=== PATIENT | male | born 1935 | race Caucasian/White ===

== ENCOUNTER 2020-07-10 08:34 | Inpatient (IN) | payer OTHER, SELFPAY ==
[~2020-07-10] VITALS: Ht 180.3 cm; Wt 90.7 kg
--- NOTE | 2020-07-10 08:34 | NUR ---
[facility]IT[facility] ON BED PLACEMENT.
--- NOTE | 2020-07-10 08:40 | NUR ---
PATIENT [facility]EE[facility] TO ER BED 08
--- NOTE | 2020-07-10 08:45 | NUR ---
85 YO M BIBA FOR C/C OF GENERALIZED WEAKNESS X2 MONTHS AND GENERALLY NOT FEELING WELL. PT DENIES FEVER, SOB, N/V/D, HAS AN ACTIVE NONPRODUCTIVE COUGH, DENIES CONTACT WITH COVID + PTS. PT CONNECTED TO GRIDDLE COOK/PULSE OX. BED LOCKED AND IN LOWEST POSITION. SIDE RAILS X2. MED HX: DENIES NKA
[2020-07-10 08:50] VITALS: BP 136/85
--- NOTE | 2020-07-10 08:50 | NUR ---
PATIENT MOVED TO ER BED 13
[2020-07-10] MEDS ORDERED: NACL 0.9% 1,000 ML IV ONE ×2 (08:55→11:55)
--- NOTE | 2020-07-10 09:48 | NUR ---
EKG AT BEDSIDE
[2020-07-10 09:50] LABS: BASOPHILS % (AUTO) 0.1 % (0.0-2.0); EOSINOPHILS % (AUTO) 0.1 % (0.0-4.0); HEMATOCRIT 41.1 % (36-52); HEMOGLOBIN 13.9 g/dL (12.0-18.0); LYMPHOCYTES # (AUTO) 0.8 K/uL (2.0-11.5); LYMPHOCYTES % (AUTO) 6.3 % (20.5-51.1); MEAN CORPUSCULAR HEMOGLOBIN 33 pg (27-31); MEAN CORPUSCULAR HGB CONC 34 g/dL (33-37); MEAN CORPUSCULAR VOLUME 98.5 fL (80-94); MONOCYTES # (AUTO) 0.9 K/uL (0.8-1.0); MONOCYTES % (AUTO) 6.8 % (1.7-9.3); NEUTROPHILS # (AUTO) 11.7 K/uL (1.8-7.7); NEUTROPHILS % (AUTO) 86.7 % (42.2-75.2); PLATELET COUNT (AUTO) 311 K/uL (140-450); RED BLOOD CELL COUNT(AUTO) 4.17 MIL/uL (4.20-6.10); RED CELL DISTRIBUTION WIDTH 13.4 % (11.6-13.7); WHITE BLOOD COUNT (AUTO) 13.5 K/uL (4.8-10.8)
--- NOTE | 2020-07-10 09:57 | NUR ---
PATIENT TAKEN TO CT
[2020-07-10 10:10] LABS: ALBUMIN 3.4 g/dL (3.4-5.0); ANION GAP 20.8 (8-16); ASPARTATE AMINOTRANSFERASE 55 U/L (15-37); CARBON DIOXIDE 21.2 mmol/L (21-32); CHLORIDE 96 mmol/L (98-107); CREATININE 0.7 mg/dL (0.6-1.3); GLUCOSE 106 mg/dL (74-106); SODIUM SERUM 134 mmol/L (136-145); TOTAL BILIRUBIN 0.7 mg/dL (0.0-1.0); UREA NITROGEN, BLOOD 17 mg/dL (7-18)
--- NOTE | 2020-07-10 10:22 | NUR ---
PT RETURNED FROM CT SCAN. BED LCOKED AND IN LOWEST POSITION. SIDE RAILS X2.
--- NOTE | 2020-07-10 10:32 | NUR ---
PRATIMAD MADE AWARE OF 03/01 ABDOMINAL PAIN
[2020-07-10] MEDS ORDERED: MORPHINE SULFATE 4 MG/ML SYR ONE (10:41)
[2020-07-10] MEDS ORDERED: ONDANSETRON 4 MG/2 ML VIAL ONE (10:41)
--- NOTE | 2020-07-10 10:51 | NUR ---
PT PLACED ON PULSE OX/POULTRY SCIENTIST BEFORE MORPHINE ADMIN
--- NOTE | 2020-07-10 11:00 | NUR ---
PT ADMITS TO TAKING MULTIPLE MEDICATION IN ATTEMPT TO OVERDOSE, NORCO, AND NAPROSYN AND AND UNKNOWN MED FOR BPH.
--- NOTE | 2020-07-10 11:00 | NUR ---
UNAWARE OF OVERDOSE PRIOR TO MORPHINE ADMINISTRATION
[2020-07-10] MEDS ORDERED: ONDANSETRON 4 MG/2 ML VIAL IVP ONE (11:05)
[2020-07-10] MEDS ORDERED: MORPHINE SULFATE 4 MG/ML SYR IVP ONE (11:05)
--- NOTE | 2020-07-10 11:37 | NUR ---
SPOKE WITH RAZA FROM POISON CONTROL. STATED TO MONITOR FOR BELT BUILDER AND RESPIRATORY DEPRESSION, ADMINISTER NARCAN IF SO. MONITOR PT FOR 4-6 HOURS AFTER NARCAN IF ADMINISTERED. STATES THAT ACETAMINOPHEN OVERDOSE IS UNLIKELY, HOWEVER IT IS RECOMMENDED TO GIVE STARTING DOSE OF N-ACETYLYCSTEINE FOR POTENTIAL ACETAMINOPHEN OVERDOSE. STARTING DOSE IS 150MG/KG/HR. RECHECK AST/ALT AFTER LOADING DOSE. RECHECK LABS FOR LACTIC ACID POST BOLUS
[2020-07-10] MEDS ORDERED: ACETYLCYSTEINE IV ONE (11:55)
[2020-07-10] MEDS ORDERED: DEXTROSE 5% IV ONE (11:55)
--- NOTE | 2020-07-10 12:19 | NUR ---
CALLED DR. ALESSIO PAREKH [phone] REVIEWED ABG SAMPLE REPORT NO NEW ORDERS
--- NOTE | 2020-07-10 12:30 | NUR ---
PT STATED ABD PAIN IS 10/10 AT THIS TIME ERMD MADE AWARE. BEDSIDE MONITOR IN PLACE MONITORING CARDIAC/O2 SAT. EQUAL CHEST RISE AND FALL.
[2020-07-10 12:35] LABS: APPEARANCE,URINE CLEAR (CLEAR); BILIRUBIN,URINE NEGATIVE (NEGATIVE); BLOOD, URINE NEGATIVE (NEGATIVE); COLOR,URINE YELLOW (YELLOW); LEUKOCYTE ESTERASE ,URINE NEGATIVE (NEGATIVE); NITRITE, URINE NEGATIVE (NEGATIVE); UGLUCOSE NEGATIVE (NEGATIVE)
--- NOTE | 2020-07-10 12:49 | NUR ---
CALLED PHARMACY TO MAKE ACETADOTE MED
[2020-07-10 12:58] LABS: ACETAMINOPHEN 5.2 ug/ml (10-30)
[2020-07-10 12:59] LABS: SALICYLATE < 2.8 mg/dL (2.8-20.0)
--- NOTE | 2020-07-10 13:09 | NUR ---
Lactic acid 6.1--critical value received from lab. Dr Guthrie made aware
[2020-07-10 13:18] LABS: BARBITURATE, URINE NEGATIVE ng/ml (NEG <=200); BENZODIAZEPINE, URINE NEGATIVE ng/mL (NEG <=200); CANNABINOID, URINE NEGATIVE ng/mL (NEG <=50); COCAINE, URINE NEGATIVE ng/mL (NEG <=300); OPIATE, URINE POSITIVE ng/mL (NEG <=2000); PHENCYCLIDINE SCREEN,URINE NEGATIVE ng/mL (NEG <=25)
--- NOTE | 2020-07-10 14:18 | NUR ---
GAVE UPDATE TO PTS DAUGHTER AFTER OBTAINING HIS CONSENT TO DO SO [phone] JOHN ARRIOLA (PTS DAUGHTER)
--- NOTE | 2020-07-10 15:22 | NUR ---
SPOKE WITH RAZA FROM POISON CONTROL, MADE HER AWARE THAT PHARMACY ADVISED AGAINST GIVING THE ACETYLCYSTEINE DUE TO 5.2 ACETAMINOPHEN LEVELS. MADE HER AWARE THAT THE LACTIC ACID IS TRENDING DOWN FROM 7.9 TO 6.1. SHE ADVISED TO GET A REPEAT CHEMISTRY PANEL AND IF AST IS TRENDING UPWARD TO GIVE THE ACETYLCYSTEINE ORDERED.
[2020-07-10 16:52] LABS: ALBUMIN 3.1 g/dL (3.4-5.0); ASPARTATE AMINOTRANSFERASE 45 U/L (15-37); CARBON DIOXIDE 20.2 mmol/L (21-32); CHLORIDE 100 mmol/L (98-107); CREATININE 0.7 mg/dL (0.6-1.3); GLUCOSE 139 mg/dL (74-106); POTASSIUM 4.2 mmol/L (3.5-5.1); SODIUM SERUM 136 mmol/L (136-145); TOTAL BILIRUBIN 1.1 mg/dL (0.0-1.0); UREA NITROGEN, BLOOD 14 mg/dL (7-18)
--- NOTE | 2020-07-10 17:00 | NUR ---
PT ASLEEP IN BED, EQUAL CHEST RISE AND FALL, PT APPEARS TO BE IN NO DISTRESS. BED LOCKED AND IN LOWEST POSITION. SIDE RAILS X2. BALLISTICS EXPERT FORENSIC/PULSE OX IN PLACE.
[2020-07-10] MEDS ORDERED: ONDANSETRON 4 MG/2 ML VIAL IVP PRN (17:15)
[2020-07-10] MEDS ORDERED: POTASSIUM CHLORIDE 10 MEQ TABER PO PRN (17:15)
[2020-07-10] MEDS ORDERED: MAGNESIUM OXIDE 400 MG TAB PO PRN (17:15)
--- NOTE | 2020-07-10 18:19 | NUR ---
Note steffen in EDM - 07/10/20 at 1822 by [facility] I SPOKE WITH RAZA FROM POISON CONTROL TO REPORT A DECREASE IS AST FROM 55 TO 45. SHE STATED NO NEED TO GIVE ACETYLCYSTEINE. POISON FAMILY NURSE STATES SHE DOESNT ANTICIPATE ANYMORE ADVERSE REACTIONS THIS FAR OUT AFTER OVERDOSE.
--- NOTE | 2020-07-10 18:22 | NUR ---
I SPOKE WITH RAZA FROM POISON CONTROL TO REPORT A DECREASE IS AST FROM 55 TO 45. SHE STATED NO NEED TO GIVE ACETYLCYSTEINE. POISON INTERNATIONAL TRADE ANALYST STATES SHE DOESNT ANTICIPATE ANYMORE ADVERSE REACTIONS THIS FAR OUT AFTER OVERDOSE.
[2020-07-10] MEDS: ALBUTEROL SULFATE/IPRATROPIU 3 ML SOL IH SCH (19:00)
--- NOTE | 2020-07-10 19:20 | NUR ---
REPORT GIVEN TO ZEB SAUCEDO. TRANSFER OF CARE AT THIS TIME.
--- NOTE | 2020-07-10 19:29 | NUR ---
Report received from ZEB Lyon for continuation of care.
[2020-07-10] MEDS: BUDESONIDE 0.5 MG/2 ML NEBU INH SCH (19:30)
--- NOTE | 2020-07-10 19:30 | NUR ---
per Kelton, RT - no breathing tx administered per Covid Protocols.
--- NOTE | 2020-07-10 20:00 | NUR ---
PT RESTING IN BED, LOCKED AND IN LOWEST POSITION, HOB ELEVATED, SIDE RAIL X 2 FOR PT SAFETY. NO ACUTE DISTRESS NOTED.
[2020-07-10] MEDS: NACL 0.9% 500 ML IV SCH (20:58)
--- NOTE | 2020-07-10 22:13 | NUR ---
PT PROVIDED W/ BEDPAN - ONE BROWN & SOFT BM NOTED.
--- NOTE | 2020-07-10 22:16 | NUR ---
PT PROVIDED W/ NEW SHEET AND REPOSITIONED FOR COMFORT.
--- NOTE | 2020-07-10 23:24 | NUR ---
PT HAD X 2 , BROWN & SOFT BOWEL MOVEMENT. NEW SHEET PLACED ON BED. PT REPOSITIONED FOR COMFORT. VSS. NO ACUTE DISTRESS NOTED.
--- NOTE | 2020-07-11 00:10 | NUR ---
Osvaldo bourne in ED - 07/12/20 at 0427 by [email or web address] PT SLEEPING, REMAINS ON BEDSIDE MONITOR, RESPIRATIONS REGULAR EVEN AND UNLABORED. WILL CONTINUE TO MONITOR
--- NOTE | 2020-07-11 00:17 | NUR ---
PT SLEEPING IN BED, LOCKED AND IN LOWEST POSITION, HOB ELEVATED, SIDE RAIL X2. VISIBLE RISE AND FALL OF CHEST, RR EVEN AND UNLABORED. AROUSABLE TO VERBAL STIMULATION. VSS. NO ACUTE DISTRESS NOTED.
[2020-07-11] MEDS: ALBUTEROL SULFATE/IPRATROPIU 3 ML SOL IH SCH ×4 (01:00→19:00)
--- NOTE | 2020-07-11 01:09 | NUR ---
per Kelton, RT - breathing tx not administered due to Covid Protocols.
[2020-07-11] MEDS: NACL 0.9% 500 ML IV SCH ×4 (03:07→23:03)
--- NOTE | 2020-07-11 03:09 | NUR ---
pt sleeping in bed, locked and in lowest position. Visible rise and fall of chest. VSS. SaO2 96%. No acute distress noted.
--- NOTE | 2020-07-11 05:00 | NUR ---
MRSA SWAB COLLECTED AND WALKED TO LAB.
--- NOTE | 2020-07-11 06:45 | NUR ---
PT HAD BROWN & SOFT BOWEL MOVEMENT AT THIS TIME.
--- NOTE | 2020-07-11 07:09 | NUR ---
PATIENT HAS BEEN SCREENED AND CATEGORIZED LOW NUTRITION RISK. PATIENT WILL BE SEEN WITHIN 7 DAYS OF ADMISSION. 07/19/20 RAQUEL MEZA MS, RDN
--- NOTE | 2020-07-11 07:20 | NUR ---
RECIEVED REPORT FROM ZEB SAUCEDO. TRANSFER OF CARE AT THIS TIME.
[2020-07-11] MEDS: BUDESONIDE 0.5 MG/2 ML NEBU INH SCH ×2 (07:30→19:30)
--- NOTE | 2020-07-11 08:00 | NUR ---
PT CHNAGED INTO NEW GOWN, BED LINENS CHNAGED. PT GIVEN BREAKFAST TRAY. BED LOCKED AND IN LOWEST POSITION. SIDE RAILS X1. CARDIAC MONIOR/PULSE OX IN PLACE.
[2020-07-11 09:14] LABS: BASOPHILS % (AUTO) 0.3 % (0.0-2.0); EOSINOPHILS % (AUTO) 0.1 % (0.0-4.0); HEMATOCRIT 36.2 % (36-52); HEMOGLOBIN 12.4 g/dL (12.0-18.0); LYMPHOCYTES # (AUTO) 0.4 K/uL (2.0-11.5); MEAN CORPUSCULAR HEMOGLOBIN 33 pg (27-31); MEAN CORPUSCULAR HGB CONC 34 g/dL (33-37); MEAN CORPUSCULAR VOLUME 97.7 fL (80-94); MONOCYTES % (AUTO) 8.5 % (1.7-9.3); NEUTROPHILS # (AUTO) 9.8 K/uL (1.8-7.7); PLATELET COUNT (AUTO) 279 K/uL (140-450); RED BLOOD CELL COUNT(AUTO) 3.71 MIL/uL (4.20-6.10); RED CELL DISTRIBUTION WIDTH 13.5 % (11.6-13.7); WHITE BLOOD COUNT (AUTO) 11.2 K/uL (4.8-10.8)
[2020-07-11 09:45] LABS: PROTHROMBIN TIME 39.2 secs (10.8-13.4)
[2020-07-11] MEDS: ENOXAPARIN 40 MG/0.4 ML SYR SUBQ SCH (09:49)
[2020-07-11 09:56] LABS: ANION GAP 13.8 (8-16); ASPARTATE AMINOTRANSFERASE 45 U/L (15-37); CARBON DIOXIDE 24.5 mmol/L (21-32); CHLORIDE 102 mmol/L (98-107); CREATININE 0.9 mg/dL (0.6-1.3); GLUCOSE 111 mg/dL (74-106); MAGNESIUM 1.9 mg/dL (1.8-2.4); PHOSPHORUS 2.1 mg/dL (2.5-4.9); POTASSIUM 4.3 mmol/L (3.5-5.1); SODIUM SERUM 136 mmol/L (136-145); TOTAL BILIRUBIN 1.2 mg/dL (0.0-1.0); UREA NITROGEN, BLOOD 20 mg/dL (7-18)
[2020-07-11 10:37] LABS: NEUTROPHILS % (AUTO) 87.1 % (42.2-75.2)
--- NOTE | 2020-07-11 11:00 | NUR ---
PT AMBULATED TO BEDSIDE COMMODE, ONE LIQUID STOOL. PLACED BACK IN BED LOCKED AND IN LOWEST POSITION. SIDE RAILS X2. CARDIAC MONIOR/PULSE OX IN PLACE.
[2020-07-11 11:01] LABS: D-DIMER 2170 ng/ml (0-400)
--- NOTE | 2020-07-11 12:18 | NUR ---
CONSULTED DR. WAGONER ABOUT PT, INR, PTT CRITICAL LEVELS. GAVE VERBAL ORDER TO REPEAT LACTIC ACID AND ACETAMINOPHEN LEVELS
--- NOTE | 2020-07-11 13:04 | NUR ---
PT PROVIDED WITH LUNCH TRAY
--- NOTE | 2020-07-11 14:00 | NUR ---
PT HAD BM OF DIARRHEA STOOL
--- NOTE | 2020-07-11 14:30 | NUR ---
LAB AT BEDSIDE
--- NOTE | 2020-07-11 15:00 | NUR ---
pt placed on 5150 hold by psychiatrist
--- NOTE | 2020-07-11 15:02 | NUR ---
PSYCHIATRIST AT BEDSIDE
--- NOTE | 2020-07-11 16:25 | NUR ---
pt states "leave me alone I want to ." camera monitoring pt with sitter near video monitor.
--- NOTE | 2020-07-11 19:05 | NUR ---
PT GIVEN DINNER TRAY. SITTING UP ON SIDE OF BED EATING. CARDIAC MONIOR/PULSE OX IN PLACE. ALL PT NEEDS MET AT THIS TIME. BED LOCKED AND IN LOWEST POSITION. SIDE RAILS X1.
--- NOTE | 2020-07-11 19:28 | NUR ---
REPORT GIVEN TO ZEB MATIAS. TRANSFER OF CARE AT THIS TIME.
--- NOTE | 2020-07-11 19:31 | NUR ---
RECEIVED REPORT FROM BEVERLEY CARRINGTON
--- NOTE | 2020-07-11 20:00 | NUR ---
TOOK DINNER TRAY FROM BEDSIDE PT ONLY ATE 10-15%. PT REMAINS ON BEDSIDE MONITOR. BED IN LOWEST POSITION AND SIDERAIL UP X 1
--- NOTE | 2020-07-12 | NUR ---
PT SLEEPING, PT REMAINS ON BEDSIDE MONITOR. RESPIRATIONS REGULAR EVEN AND UNLABORED. WILL CONTINUE TO MONITOR PT
--- NOTE | 2020-07-12 03:15 | NUR ---
PT SLEEPING, NO DISTRESS NOTED. REMAINS ON BEDISDE MONITOR, V/S WNL. WILL CONTIUE TO MONITOR.
--- NOTE | 2020-07-12 03:50 | NUR ---
PT'S LINENS AND GOWN CHANGED, PT URINATED IN BED. DIAPER PLACED ON PT. RESPOSTIONED FOR COMFORT.
[2020-07-12] MEDS: NACL 0.9% 500 ML IV SCH ×3 (05:42→17:46)
--- NOTE | 2020-07-12 07:19 | NUR ---
Pt report given to LINDA CARRINGTON. Transfer of care at this time.
--- NOTE | 2020-07-12 07:20 | NUR ---
Report received from ZEB Lawrence shift commander
[2020-07-12 08:10] LABS: BASOPHILS % (AUTO) 0.2 % (0.0-2.0); EOSINOPHILS % (AUTO) 0.5 % (0.0-4.0); HEMATOCRIT 36.7 % (36-52); HEMOGLOBIN 12.7 g/dL (12.0-18.0); LYMPHOCYTES # (AUTO) 0.7 K/uL (2.0-11.5); LYMPHOCYTES % (AUTO) 8.4 % (20.5-51.1); MEAN CORPUSCULAR HEMOGLOBIN 34 pg (27-31); MEAN CORPUSCULAR HGB CONC 35 g/dL (33-37); MEAN CORPUSCULAR VOLUME 96.8 fL (80-94); MONOCYTES # (AUTO) 0.7 K/uL (0.8-1.0); MONOCYTES % (AUTO) 8.2 % (1.7-9.3); NEUTROPHILS % (AUTO) 82.7 % (42.2-75.2); PLATELET COUNT (AUTO) 283 K/uL (140-450); RED BLOOD CELL COUNT(AUTO) 3.79 MIL/uL (4.20-6.10); RED CELL DISTRIBUTION WIDTH 13.5 % (11.6-13.7); WHITE BLOOD COUNT (AUTO) 8.5 K/uL (4.8-10.8)
--- NOTE | 2020-07-12 08:26 | NUR ---
Patient resting comfortably in bed, HOB elevated Patient in hospital gown, denies any suicidal ideations at this time, room 8 swept for safety Close observation Resp even and unlabored, room air sat 93-96% VVS, in NAD, IV # 20g right hand, patent, receiving NS @ 75 cc/hr Will continue to monitor
[2020-07-12 08:32] LABS: PROTHROMBIN TIME 10.4 secs (10.8-13.4)
--- NOTE | 2020-07-12 09:33 | NUR ---
Patient brought regular diet tray for breakfast Patient states he's not hungry, left tray Patient didn't eat meal
[2020-07-12] MEDS: ENOXAPARIN 40 MG/0.4 ML SYR SUBQ SCH (09:56)
[2020-07-12 11:12] LABS: ALBUMIN 2.9 g/dL (3.4-5.0); ANION GAP 14.3 (8-16); ASPARTATE AMINOTRANSFERASE 39 U/L (15-37); CARBON DIOXIDE 24.6 mmol/L (21-32); CHLORIDE 106 mmol/L (98-107); CREATININE 0.6 mg/dL (0.6-1.3); GLUCOSE 94 mg/dL (74-106); MAGNESIUM 2.2 mg/dL (1.8-2.4); PHOSPHORUS 2.4 mg/dL (2.5-4.9); POTASSIUM 3.9 mmol/L (3.5-5.1); SODIUM SERUM 141 mmol/L (136-145); TOTAL BILIRUBIN 0.8 mg/dL (0.0-1.0); UREA NITROGEN, BLOOD 8 mg/dL (7-18)
--- NOTE | 2020-07-12 12:35 | NUR ---
Patient brought regular diet tray for lunch Patient states he's not hungry, left tray Patient didn't eat meal
--- NOTE | 2020-07-12 13:36 | NUR ---
Patient with NS @ 75cc/hr via righr hand IV, 500cc bag exchanged. VVS, resp even and unlabored, HOB elevated Patient in hospital gown, room 8 swept for safety, close observation
--- NOTE | 2020-07-12 14:11 | NUR ---
SOCIAL WORK NOTE: RAEGAN CONTACTED ZEB ARGUELLO IN ER AND REQUESTED FOR 5150 TO BE FAXED TO [facility]. RAEGAN WILL FOLLOW UP. RAEGAN IS UNABLE TO MEET PATIENT DUE TO MEDICAL CONDITION TO COMPLETE ASSESSMENT. Addendum: 07/12/20 at 1625 by Jonel ANDREWS RAEGAN SPOKE WITH KATYA FROM [facility]. PER KATYA, PACKET WAS NOT RECEIVED. RAEGAN CONTACTED ZEB PEGUERO FROM ED WHO STATED SHE WOULD HAVE 5150 FAXED AGAIN. Addendum: 07/12/20 at 1641 by Jonel ANDREWS RAEGAN FAXED PACKET TO [facility] [phone] AND [phone]. RAEGAN WILL FOLLOW UP. Addendum: 07/12/20 at 1646 by Jonel ANDREWS RAEGAN CONTACTED [facility] AND SPOKE TO KATYA [phone]. PER KATYA [facility] RECEIVED CLINICALS AND WILL BEGIN LOOKING FOR PLACEMENT. Addendum: 07/13/20 at 1543 by Jonel ANDREWS RAEGAN WAS UNABLE TO COMPLETE ASSESSMENT WITH PATIENT. RAEGAN WILL FOLLOW UP. Addendum: 07/13/20 at 1544 by Jonel ANDREWS RAEGAN CONTACTED KATYA FROM [facility] [phone]. PER KATYA, NO PSYCHIATRIC FACILITIES ARE ACCEPTING PATIENTS WITH COVID. KATYA STATED HE WILL FOLLOW UP WITH RAEGAN.
--- NOTE | 2020-07-12 17:38 | NUR ---
Patient sleeping, HOB elevated, IV patent with 75cc/hr Patient on 5150 for DTS, in hospital gown, room swept for safety, close observation
--- NOTE | 2020-07-12 19:30 | NUR ---
RECEIVED REPORT FROM LINDA CARRINGTON FOR CONTINUITY OF CARE.
--- NOTE | 2020-07-12 19:40 | NUR ---
Detailed report given to ZEB Lowry for shift production supervisor. Questions answered. Orders and meds reviewed.
--- NOTE | 2020-07-12 20:35 | NUR ---
PT HAD X 1 , BROWN & SOFT BOWEL MOVEMENT. NEW SHEET PLACED ON BED SKIN WAS CLEANED AND LEFT DRY/INTACT. PT REPOSITIONED FOR COMFORT. VSS. NO ACUTE DISTRESS NOTED. Addendum: 07/12/20 at 2223 by [employer] 1:1 STAFF AT ARMS LENGTH FOR OBSERVATION AND SAFETY. WILL CONTINUE TO MONITOR. DENIES HAVING ANY SI/HI.
[2020-07-12] MEDS: BUDESONIDE 0.5 MG/2 ML NEBU INH SCH (21:30)
[2020-07-12] MEDS: ALBUTEROL SULFATE/IPRATROPIU 3 ML SOL IH SCH (21:30)
--- NOTE | 2020-07-12 22:25 | NUR ---
PT LAYING IN BED IN NO ACUTE DISTRESS NOTED. VSS, 1:1 STAFF NEAR BEDSIDE FOR OBSERVATION AND ENSURE SAFETY OF PT. WILL CONTINUE TO MONITOR.
--- NOTE | 2020-07-13 00:25 | NUR ---
PT LAYING IN BED IN NO ACUTE DISTRESS NOTED. VSS, 1:1 STAFF NEAR BEDSIDE FOR OBSERVATION AND ENSURE SAFETY OF PT. WILL CONTINUE TO MONITOR.
[2020-07-13] MEDS: NACL 0.9% 500 ML IV SCH ×4 (01:35→22:38)
--- NOTE | 2020-07-13 02:20 | NUR ---
PT PULLED OFF HIS IV SITE, INSERTED A NEW IV TO R FOREARM 20 G. SITE WAS PATENT NO REDNESS, SWELLING NOTED. FLUSHED WITH 10 ML OF 0.9% NS.
--- NOTE | 2020-07-13 02:29 | NUR ---
PT LAYING IN BED IN NO ACUTE DISTRESS NOTED. VSS, 1:1 STAFF NEAR BEDSIDE FOR OBSERVATION AND ENSURE SAFETY OF PT. WILL CONTINUE TO MONITOR.
--- NOTE | 2020-07-13 04:16 | NUR ---
PT LAYING IN BED IN NO ACUTE DISTRESS NOTED. VSS, 1:1 STAFF NEAR BEDSIDE FOR OBSERVATION AND ENSURE SAFETY OF PT. WILL CONTINUE TO MONITOR.
--- NOTE | 2020-07-13 06:25 | NUR ---
PT LAYING IN BED IN NO ACUTE DISTRESS NOTED. VSS, 1:1 STAFF NEAR BEDSIDE FOR OBSERVATION AND ENSURE SAFETY OF PT. WILL CONTINUE TO MONITOR.
--- NOTE | 2020-07-13 07:12 | NUR ---
PT LAYING IN BED IN NO ACUTE DISTRESS NOTED. VSS, 1:1 STAFF NEAR BEDSIDE FOR OBSERVATION AND ENSURE SAFETY OF PT. WILL CONTINUE TO MONITOR.
--- NOTE | 2020-07-13 07:20 | NUR ---
RECEIVED ENDORSEMENT FROM NIGHT ASLEEP, BREATHING SPONTANEOUSLY AT ROOM AIR, NON LABORED BREATHING NOTED. ADMITTED A CASE OF 5150 HOLD, SAFETY MEASURES IN PLACE AND CONTINUE MONITOR.
--- NOTE | 2020-07-13 07:25 | NUR ---
GAVE REPORT TO RELYN RN FOR CONTINUITY OF CARE.
[2020-07-13] MEDS: ALBUTEROL SULFATE/IPRATROPIU 3 ML SOL IH SCH ×2 (07:43→13:23)
[2020-07-13] MEDS: BUDESONIDE 0.5 MG/2 ML NEBU INH SCH (07:44)
[2020-07-13 08:00] VITALS: BP 135/78
--- NOTE | 2020-07-13 08:32 | NUR ---
ASLEEP, NOT IN DISTRESS NOTED
[2020-07-13 09:50] LABS: BASOPHILS % (AUTO) 0.3 % (0.0-2.0); EOSINOPHILS # (AUTO) 0.1 K/uL (0-0.4); EOSINOPHILS % (AUTO) 0.8 % (0.0-4.0); HEMATOCRIT 38.1 % (36-52); HEMOGLOBIN 12.9 g/dL (12.0-18.0); LYMPHOCYTES # (AUTO) 1.2 K/uL (2.0-11.5); LYMPHOCYTES % (AUTO) 12.6 % (20.5-51.1); MEAN CORPUSCULAR HEMOGLOBIN 33 pg (27-31); MEAN CORPUSCULAR HGB CONC 34 g/dL (33-37); MEAN CORPUSCULAR VOLUME 98.8 fL (80-94); MONOCYTES # (AUTO) 0.8 K/uL (0.8-1.0); MONOCYTES % (AUTO) 8.3 % (1.7-9.3); NEUTROPHILS # (AUTO) 7.5 K/uL (1.8-7.7); PLATELET COUNT (AUTO) 321 K/uL (140-450); RED BLOOD CELL COUNT(AUTO) 3.86 MIL/uL (4.20-6.10); RED CELL DISTRIBUTION WIDTH 13.3 % (11.6-13.7); WHITE BLOOD COUNT (AUTO) 9.7 K/uL (4.8-10.8)
[2020-07-13 10:00] LABS: PROTHROMBIN TIME 10.7 secs (10.8-13.4)
[2020-07-13 10:08] LABS: ALBUMIN 2.9 g/dL (3.4-5.0); ANION GAP 14.2 (8-16); ASPARTATE AMINOTRANSFERASE 30 U/L (15-37); CARBON DIOXIDE 25.2 mmol/L (21-32); CHLORIDE 105 mmol/L (98-107); CREATININE 0.6 mg/dL (0.6-1.3); GLUCOSE 95 mg/dL (74-106); MAGNESIUM 2.3 mg/dL (1.8-2.4); PHOSPHORUS 2.4 mg/dL (2.5-4.9); POTASSIUM 3.4 mmol/L (3.5-5.1); SODIUM SERUM 141 mmol/L (136-145); TOTAL BILIRUBIN 0.8 mg/dL (0.0-1.0); UREA NITROGEN, BLOOD 11 mg/dL (7-18)
--- NOTE | 2020-07-13 10:32 | NUR ---
AWAKE AND APPARENTLY CALMED
--- NOTE | 2020-07-13 11:12 | NUR ---
AWAKE AND CALMED, DUE MEDICATION GIVEN
[2020-07-13] MEDS: ENOXAPARIN 40 MG/0.4 ML SYR SUBQ SCH (11:17)
[2020-07-13 12:00] VITALS: BP 131/69
--- NOTE | 2020-07-13 13:52 | NUR ---
CHECKED ON PATIENT, APPARENTLY SLEEPING,NOT IN DISTRESS NOTED
--- NOTE | 2020-07-13 14:17 | NUR ---
DC PLANN[age] YRS OLD MALE PATIENT WAS ADMITTED FROM HOME WITH A DX OF SUCIDAL IDEATION. PT OVERDOSED WITH HIS NORCO, AND HIS BPH MEDS. PT IS CONFUSED UNABLE TO GET MEDICAL HISTORY. SEEN BY PSYCHIATRY DR BARNETT ORDERED TO CONTINUE 5150 HOLD. CXR SHOWED SUSPECTED PATCHY INFILTRATES IN THE RIGHT LUNG. RAPIC COVID TEST POSITIVE . CT HEAD SHOWED NO ACUTE INTRACRANIAL HEMORRHAGE. 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 DC PLAN LOOKING FOR A PSYCH FACILITY THAT CAN TAKE COVID PATIENT. CM TO FOLLOW Addendum: 07/14/20 at 1506 by Fela Rodriguez CM DC BULB PACKER: SPOKE TO PATIENTS DAUGHTER LISA [phone] SHE GOT A HOTEL ROOM FOR HER FATHER BUT FAMILY CAN NOT PROVIDE TRANSPORTATION. Addendum: 07/14/20 at 1550 by Cinthia Villegas CONTACTED PATIENT'S DAUGHTER KEL ARRIOLA AT [phone] TO DISCUSS SAFE DC PLAN. PER KEL, SHE IS NOT ABLE TO TAKE THE PATIENT HOME BECAUSE HER SON IS IN CANCER REMISSION AND SHE HERSELF IS SICK WELL HOWEVER SHE WILL REACH OUT TO HER COUSIN IF THE PATIENT WILL BE ABLE TO STAY WITH THEM AND WILL CALL ME BACK. PROVIDED HER OF MY CONTACT INFORMATION.
--- NOTE | 2020-07-13 15:53 | NUR ---
ASLEEP, BREATHING SPONTANEOUSLY AT ROOM AIR, NOT IN DISTRESS NOTED
[2020-07-13 16:00] VITALS: BP 128/71
--- NOTE | 2020-07-13 17:56 | NUR ---
ASLEEP AND CALMED, NO SIGNS OF SUICIDAL IDEATION NOTED
--- NOTE | 2020-07-13 19:19 | NUR ---
ENDORSED TO WIND UP OPERATOR IN STABLE CONDITION FOR CONTINUITY OF CARE.
--- NOTE | 2020-07-13 19:30 | NUR ---
RECEIVED REPORT FROM ZEB TOBAR FOR CONTINUATION OF CARE
--- NOTE | 2020-07-13 20:00 | NUR ---
PROVIDED PERINEAL CARE AND CHANGED BED LINENS. PT HAD YELLOW DIARRHEA.
--- NOTE | 2020-07-13 21:00 | NUR ---
PT LAYING SUPINE WITH HOB IN SEMI-FOWLERS POSITION. RISE AND FALL OF CHEST NOTED. PT IS NOT IN ANY ACUTE DISTRESS AT THIS TIME. BED IS LOCKED AND IN LOWEST POSITION. SIDE RAILSX1. SI PRECAUTIONS IN PLACE. WILL CONTINUE TO MONITOR.
--- NOTE | 2020-07-13 23:00 | NUR ---
PT IS ASLEEP AND LAYING SUPINE WITH HOB IN SEMI-FOWLERS POSITION. RISE AND FALL OF CHEST NOTED. PT IS NOT IN ANY ACUTE DISTRESS AT THIS TIME. BED IS LOCKED AND IN LOWEST POSITION. SIDE RAILSX1. SI PRECAUTIONS IN PLACE. WILL CONTINUE TO MONITOR.
--- NOTE | 2020-07-14 | NUR ---
PT IS ASLEEP AND LAYING ON HIS RIGHT SIDE. RISE AND FALL OF CHEST NOTED. PT IS NOT IN ANY ACUTE DISTRESS AT THIS TIME. BED IS LOCKED AND IN LOWEST POSITION. SIDE RAILSX1. SI PRECAUTIONS IN PLACE. WILL CONTINUE TO MONITOR.
--- NOTE | 2020-07-14 04:00 | NUR ---
WOKE PT UP TO RE-SECURE IV SITE. PT IS NOT IN ANY ACUTE DISTRESS AT THIS TIME. BED IS LOCKED AND IN LOWEST POSITION. SIDE RAILSX1. SI PRECAUTIONS IN PLACE. WILL CONTINUE TO MONITOR.
[2020-07-14] MEDS: NACL 0.9% 500 ML IV SCH ×2 (05:07→10:55)
--- NOTE | 2020-07-14 05:15 | NUR ---
PT LAYING ON IV SITE AND IV PUMP IS ALARMING. PT AWOKEN BY THE IV PUMP. RE-SECURED IV SITE AGAIN. PT IS NOT IN ANY ACUTE DISTRESS AT THIS TIME. BED IS LOCKED AND IN LOWEST POSITION. SIDE RAILSX1. SI PRECAUTIONS IN PLACE. WILL CONTINUE TO MONITOR.
--- NOTE | 2020-07-14 06:15 | NUR ---
PT IS ASLEEP AND LAYING ON HIS RIGHT SIDE OVER HIS IV SITE. PT ADVISED THAT THIS WILL CAUSE IV PUMP TO ALARM. RISE AND FALL OF CHEST NOTED. PT IS NOT IN ANY ACUTE DISTRESS AT THIS TIME. BED IS LOCKED AND IN LOWEST POSITION. SIDE RAILSX1. SI PRECAUTIONS IN PLACE. WILL CONTINUE TO MONITOR.
--- NOTE | 2020-07-14 06:45 | NUR ---
LAB AT BEDSIDE
[2020-07-14] MEDS: BUDESONIDE 0.5 MG/2 ML NEBU INH SCH (07:02)
[2020-07-14] MEDS: ALBUTEROL SULFATE/IPRATROPIU 3 ML SOL IH SCH (07:02)
--- NOTE | 2020-07-14 07:45 | NUR ---
GAVE REPORT TO ZEB TIERNEY FOR TRANSFER OF CARE AT THIS TIME.
[2020-07-14] MEDS: ENOXAPARIN 40 MG/0.4 ML SYR SUBQ SCH (09:00)
[2020-07-14 09:09] LABS: BASOPHILS % (AUTO) 0.5 % (0.0-2.0); EOSINOPHILS # (AUTO) 0.1 K/uL (0-0.4); EOSINOPHILS % (AUTO) 0.9 % (0.0-4.0); HEMATOCRIT 39.2 % (36-52); HEMOGLOBIN 13.7 g/dL (12.0-18.0); LYMPHOCYTES # (AUTO) 1.4 K/uL (2.0-11.5); LYMPHOCYTES % (AUTO) 14.1 % (20.5-51.1); MEAN CORPUSCULAR HEMOGLOBIN 34 pg (27-31); MEAN CORPUSCULAR HGB CONC 35 g/dL (33-37); MEAN CORPUSCULAR VOLUME 97.7 fL (80-94); MONOCYTES # (AUTO) 0.9 K/uL (0.8-1.0); MONOCYTES % (AUTO) 9.3 % (1.7-9.3); NEUTROPHILS # (AUTO) 7.4 K/uL (1.8-7.7); NEUTROPHILS % (AUTO) 75.2 % (42.2-75.2); PLATELET COUNT (AUTO) 338 K/uL (140-450); RED BLOOD CELL COUNT(AUTO) 4.01 MIL/uL (4.20-6.10); RED CELL DISTRIBUTION WIDTH 13.2 % (11.6-13.7); WHITE BLOOD COUNT (AUTO) 9.8 K/uL (4.8-10.8)
[2020-07-14 09:58] LABS: PROTHROMBIN TIME 10.8 secs (10.8-13.4)
[2020-07-14 10:00] LABS: ALBUMIN 2.9 g/dL (3.4-5.0); ANION GAP 14.8 (8-16); ASPARTATE AMINOTRANSFERASE 31 U/L (15-37); CARBON DIOXIDE 25.6 mmol/L (21-32); CHLORIDE 105 mmol/L (98-107); CREATININE 0.6 mg/dL (0.6-1.3); GLUCOSE 85 mg/dL (74-106); MAGNESIUM 2.3 mg/dL (1.8-2.4); PHOSPHORUS 2.7 mg/dL (2.5-4.9); POTASSIUM 3.4 mmol/L (3.5-5.1); SODIUM SERUM 142 mmol/L (136-145); TOTAL BILIRUBIN 0.9 mg/dL (0.0-1.0); UREA NITROGEN, BLOOD 12 mg/dL (7-18)
[2020-07-14 12:38] VITALS: BP 170/80
[2020-07-14 12:41] VITALS: BP 170/80
--- NOTE | 2020-07-15 23:29 | NUR ---
Per psych MD notes on 07/14/2020, patient no longer meets LPS criteria hold, 5150 discontinued
== END 2020-07-14 12:41 | disposition home or self-care (01) | DRG 917 ==
LOC: MED 08:34 → MMU 17:12 → MTU 07-11 18:27 → MMU 07-11 21:07 → MTU 07-13 07:18
PROVIDERS: ADMIT Hospitalist; ATTEND Hospitalist
DX: T40.601A Poisoning by unspecified narcotics, accidental (unintentional), initial encounter (principal); U07.1 COVID-19; A41.9 Sepsis, unspecified organism; R45.851 Suicidal ideations; E87.2 Acidosis; D68.59 Other primary thrombophilia; N40.0 Benign prostatic hyperplasia without lower urinary tract symptoms; K76.0 Fatty (change of) liver, not elsewhere classified; K76.89 Other specified diseases of liver; F32.9 Major depressive disorder, single episode, unspecified; F10.10 Alcohol abuse, uncomplicated; K57.30 Diverticulosis of large intestine without perforation or abscess without bleeding; N28.1 Cyst of kidney, acquired; M19.90 Unspecified osteoarthritis, unspecified site; Z79.891 Long term (current) use of opiate analgesic; Y92.89 Other specified places as the place of occurrence of the external cause
CPT/HCPCS: 36415; 70450; 71045; 80053; 80305; 81003; 83605; 83735; 84100; 84484; 85025; 85379; 85610; 85730; 87040; 87081; 87086; 93005; 94640; 96361; 96374; 96375; 99285; G0480; G0482; J0132; J1650; J2270; J2405; J7060; J7626